=== PATIENT | female | born 1950 | race Caucasian/White ===

== ENCOUNTER 2017-06-09 10:53 | Emergency (ER) | payer MEDICARE, OTHER ==
[2017-06-09 11:09] VITALS: BP 142/85
--- NOTE | 2017-06-09 11:22 | UC ---
Eye Complaint HPI - HPI Summary HPI Summary: 66 yo female states that last PM her right eye started feeling irritated and itchy this AM when she awoke it was red and matted shut with a thick d/c no URI symptoms no photophobia no fb sensation - History of Current Complaint Chief Complaint: UCEye Stated Complaint: RIGHT EYE COMPLAINT Time Seen by Provider: 06/09/17 11:08 Onset/Duration: Gradual Onset, Lasting Hours Timing: Constant Severity Initially: Mild Severity Currently: Mild Pain Intensity: 1 Pain Scale Used: 0-10 Numeric Location of Injury: Conjunctiva Aggravating Factor(s): Nothing Alleviating Factor(s): Nothing Associated Signs And Symptoms: Positive: Drainage (Purulent) - Allergies/Home Medications Allergies/Adverse Reactions: Allergies Allergy/AdvReac Type Severity Reaction Status Date / Time No Known Allergies Allergy Verified 06/09/17 11:03 Home Medications: Home Medications Aspirin TAB* [Aspirin 325 MG TAB*] 325 mg PO DAILY 06/09/17 [History Confirmed 06/09/17] Cholecalciferol [Vitamin D3] 2,000 unit PO DAILY 06/09/17 [History Confirmed 05/19] Diabet- Metformin 1 tab PO BID 06/09/17 [History] Fexofenadine HCl [Allergy 24-Hr] 180 mg PO DAILY 06/09/17 [History Confirmed 05/19] Gabapentin CAP(*) [Neurontin 300 CAP(*)] 300 mg PO TID 06/09/17 [History Confirmed 06/09/17] Ibandronate Sodium 150 mg PO MONTHLY 06/09/17 [History Confirmed 06/09/17] Levothyroxine TAB* [Synthroid TAB*] 75 mcg PO DAILY 06/09/17 [History Confirmed 06/09/17] Losartan/HCTZ 100/25 (NF) [Hyzaar 100/25 (NF)] 1 tab PO DAILY 06/09/17 [History Confirmed 06/09/17] Multiple Vitamins W/ Minerals [Multivitamin Adults] 1 tab PO DAILY 06/09/17 [ History Confirmed 06/09/17] [id number] Ethyl Esters [Lovaza 1 gm] 1 cap PO BID 06/09/17 [History Confirmed 06/09/17] Rosuvastatin Calcium [Crestor] 10 mg PO DAILY 06/09/17 [History Confirmed ] PMH/Surg Hx/FS Hx/Imm Hx Previously Healthy: Yes Endocrine History: Diabetes, Dyslipidemia Cardiovascular History: Hypertension - Surgical History Surgical History: Yes Surgery Procedure, Year, and Place: L toe. R kneeL heel. choley. L foot cyst. back surgery - Family History Known Family History: Positive: Hypertension, Diabetes - Social History Alcohol Use: None Substance Use Type: None Smoking Status (MU): Never Smoked Tobacco Review of Systems Constitutional: Negative Skin: Negative Eyes: Drainage, Eye Redness ENT: Negative Respiratory: Negative Cardiovascular: Negative Gastrointestinal: Negative Genitourinary: Negative Motor: Negative Neurovascular: Negative Musculoskeletal: Negative Neurological: Negative Psychological: Negative All Other Systems Reviewed And Are Negative: Yes Physical Exam Triage Information Reviewed: Yes Appearance: Well-Appearing, No Pain Distress, Well-Nourished Vital Signs: Initial Vital Signs Temp 98 F 06/09/17 11:04 Pulse 76 06/09/17 11:04 Resp 18 06/09/17 11:04 BP 142/85 06/09/17 11:04 Pulse Ox 95 06/09/17 11:04 Vital Signs Reviewed: Yes Eyes: Positive: Conjunctiva Inflamed - right eye, Discharge - right eye ENT: Positive: Hearing grossly normal. Negative: Nasal congestion, Nasal drainage, Tonsillar exudate, Trismus, Muffled/hoarse voice Neck: Positive: Supple, Nontender Respiratory: Positive: Lungs clear, Normal breath sounds, No respiratory distress Cardiovascular: Positive: RRR, No Murmur Musculoskeletal: Positive: ROM Intact, No Edema Neurological: Positive: Alert Psychological Exam: Normal Skin Exam: Normal Eye Complaint Course/Dx - Differential Dx/Diagnosis Provider Diagnoses: right conjunctivitis Discharge - Discharge Plan Condition: Stable Disposition: HOME Prescriptions: Polymyx/Trimethoprim OPTH* [Polytrim OPHTH*] 1 - 2 drop RIGHT EYE QID #1 btl Patient Education Materials: Conjunctivitis (ED) Additional Instructions: I suggest you also use ZADITOR eye drops (OTC) to help with irritation and redness recheck in 3-4 days if not better...sooner if symptoms worsen
== END 2017-06-09 11:30 | disposition home or self-care (01) ==
LOC: UCCORT 10:53
DX: H10.31 Unspecified acute conjunctivitis, right eye (principal); E11.9 Type 2 diabetes mellitus without complications; Z79.84 Long term (current) use of oral hypoglycemic drugs; E78.5 Hyperlipidemia, unspecified; I10 Essential (primary) hypertension
CPT/HCPCS: 99202; G0463